=== PATIENT | female | born 1995 | race African-American/Black ===

== ENCOUNTER 2021-07-10 19:43 | Day surgery (SDC) | payer OTHER ==
[2021-07-10] MEDS ORDERED: hydrALAZINE 20 MG/ML VIAL SLOW IVP PRN (20:42)
[2021-07-10] MEDS ORDERED: Promethazine HCl 25 MG/ML VIAL IM SCH (20:45)
[2021-07-10] MEDS ORDERED: Lactated Ringer's 1,000 ML IV SCH (20:45)
[2021-07-10] MEDS ORDERED: Morphine 10 MG/ML VIAL SLOW IVP SCH (20:45)
[2021-07-10 21:08] LABS: Bilirubin Neg (Negative); Blood, Urine 250 (Negative); Clarity Slightly Cloudy (Clear); Glucose, Urine (Dipstick) Normal (Negative); Ketone, Urine 5 mg/dL (Negative); Leukocyte 25 (Negative); Nitrite Negative (Negative); Protein, Urine (Dipstick) 30 mg/dl (Neg-Trace)
[2021-07-10 21:17] LABS: Bacteria/HPF Rare-Few HPF (None Seen); Mucous/LPF 4+ LPF (<2+); RBC/HPF Greater than 50 HPF (0-3); Squamous Epithelial 0-3 HPF (0-3)
[2021-07-10 21:18] LABS: #Neutrophils 6.6 10x3/uL (1.5-8.4); %Basophils 0.3 % (0.0-2.0); %Eosinophils 0.3 % (0.0-6.0); %Lymphocytes 30.7 % (18.0-47.0); %Monocytes 9.1 % (0.0-10.0); %Neutrophils 59.2 % (40.0-75.0); Hemoglobin 11.1 g/dL (12.0-15.5); Mean Corpuscular HGB CONC 34.9 g/dL (32.0-36.0); Mean Corpuscular Hemoglobin 28.8 pg (27.0-33.0); Mean Corpuscular Volume 82.6 fl (81.6-98.3); Mean Platelet Volume 9.5 fl (7.4-10.4); Platelet Count 412 10x3/uL (150-450); RBC Distribution Width 12.8 % (11.5-14.5); Red Blood Cell (RBC) Count 3.85 10x6/uL (3.90-5.03); White Blood Cell (WBC) Count 11.1 10x3/uL (3.5-10.5)
[2021-07-10 21:25] LABS: Anion Gap 16 mmol/L (10-20); BUN (Urea Nitrogen) 7 mg/dL (7.0-18.7); Calc. Creatinine Clearance 0 mL/min (70-130); Calcium 9.4 mg/dL (7.8-10.44); Carbon Dioxide 18 mmol/L (22-29); Chloride 105 mmol/L (98-107); Glucose 88 mg/dL (70-105); Potassium 3.9 mmol/L (3.5-5.1); Sodium 135 mmol/L (136-145)
[2021-07-10 21:31] LABS: FFN Internal QC Analyzer PASS (PASS); FFN Internal QC Cassette PASS (PASS); Fetal Fibronectin Negative (Negative)
== END 2021-07-11 10:47 | disposition home or self-care (01) ==
LOC: CSHLD/OP 19:43
PROVIDERS: ATTEND Obstetrics & Gynecology
DX: O99.612 Diseases of the digestive system complicating pregnancy, second trimester (principal); K52.9 Noninfective gastroenteritis and colitis, unspecified; O26.892 Other specified pregnancy related conditions, second trimester; R10.2 Pelvic and perineal pain; Z3A.27 27 weeks gestation of pregnancy
CPT/HCPCS: 36415; 51701; 76770; 80048; 81001; 82731; 85025; 87480; 87510; 87660; 96360; 96361; 96372; 96375; 99285; J2270; J2550

== ENCOUNTER 2021-09-13 09:19 | Day surgery (SDC) | payer OTHER ==
[2021-09-13 09:24] VITALS: BMI 38.4
[2021-09-13] MEDS ORDERED: hydrALAZINE 20 MG/ML VIAL SLOW IVP PRN (09:54)
[2021-09-13] MEDS ORDERED: Ondansetron ODT 4 MG TAB SL PRN (10:04)
[2021-09-13 10:41] LABS: Bilirubin Neg (Negative); Blood, Urine 10 (Negative); Clarity Clear (Clear); Glucose, Urine (Dipstick) Normal (Negative); Ketone, Urine Negative (Negative); Leukocyte Negative (Negative); Nitrite Negative (Negative); Protein, Urine (Dipstick) Negative (Neg-Trace)
[2021-09-13 10:50] LABS: Urine Culture Reflex No No
[2021-09-13 10:56] LABS: Renal Epithelial 0-3 HPF (None Seen); Squamous Epithelial 0-3 HPF (0-3)
[2021-09-13 11:00] LABS: Transitional Epithelial 0-3 HPF (None Seen)
[2021-09-13 11:02] LABS: Bacteria/HPF 1+ HPF (None Seen)
== END 2021-09-13 11:55 | disposition home or self-care (01) ==
LOC: CSHLD/OP 09:19
PROVIDERS: ATTEND Family Medicine
DX: O26.893 Other specified pregnancy related conditions, third trimester (principal); R10.30 Lower abdominal pain, unspecified; Z3A.36 36 weeks gestation of pregnancy; Z90.49 Acquired absence of other specified parts of digestive tract
CPT/HCPCS: 51701; 81001; 87086; 87480; 87510; 87660; 99284

== ENCOUNTER 2021-09-18 20:06 | Day surgery (SDC) | payer OTHER ==
[2021-09-18 20:47] VITALS: BMI 38.4
[2021-09-18] MEDS ORDERED: hydrALAZINE 20 MG/ML VIAL SLOW IVP PRN (21:26)
== END 2021-09-18 21:27 | disposition home or self-care (01) ==
LOC: CSHLD/OP 20:06
PROVIDERS: ATTEND Family Medicine
DX: O47.1 False labor at or after 37 completed weeks of gestation (principal); O26.893 Other specified pregnancy related conditions, third trimester; R11.0 Nausea; Z3A.37 37 weeks gestation of pregnancy; Z90.49 Acquired absence of other specified parts of digestive tract

== ENCOUNTER 2021-09-20 16:36 | Inpatient (IN) | payer OTHER ==
[~2021-09-20 16:36] MED LIST: Bupivacaine/Epinephrine 0.25% 30 ML VIAL ONE
[2021-09-20] MEDS ORDERED: Diphenoxylate HCl/Atropine Tablet PO PRN (16:58)
[2021-09-20] MEDS ORDERED: Lidocaine 1% (PF) 30 ML VIAL SC PRN (16:58)
[2021-09-20] MEDS ORDERED: Methylergonovine 0.2 MG/ML VIAL IM PRN (16:58)
[2021-09-20] MEDS ORDERED: Misoprostol 200 MCG TAB PR PRN (16:58)
[2021-09-20] MEDS ORDERED: Carboprost 250 MCG/ML AMP IM PRN (16:58)
[2021-09-20] MEDS ORDERED: Butorphanol Tartrate 1 MG/ML VIAL SLOW IVP PRN (16:58)
[2021-09-20] MEDS ORDERED: hydrALAZINE 20 MG/ML VIAL SLOW IVP PRN ×2 (16:58→21:51)
[2021-09-20] MEDS ORDERED: Ondansetron PF 4 MG/2 ML Vial IVP PRN ×3 (16:58→21:51)
[2021-09-20] MEDS ORDERED: Promethazine HCl 25 MG/ML VIAL IM PRN ×3 (16:58→21:51)
[2021-09-20] MEDS ORDERED: NS w/ Oxytocin 30 units 500 ML IV SCH ×3 (17:00→21:51)
[2021-09-20] MEDS ORDERED: Lactated Ringer's 1,000 ML IV SCH (17:00)
[2021-09-20 17:30] LABS: Hemoglobin 11.4 g/dL (12.0-15.5); Mean Corpuscular HGB CONC 34.2 g/dL (32.0-36.0); Mean Corpuscular Hemoglobin 27.5 pg (27.0-33.0); Mean Corpuscular Volume 80.2 fl (81.6-98.3); Mean Platelet Volume 9.7 fl (7.4-10.4); Platelet Count 461 10x3/uL (150-450); RBC Distribution Width 12.6 % (11.5-14.5); Red Blood Cell (RBC) Count 4.15 10x6/uL (3.90-5.03)
[2021-09-20] MEDS ORDERED: Fentanyl 2 mcg/Bup 0.1% Cadd 100 ML ONE (17:33)
[2021-09-20] MEDS ORDERED: Naloxone HCl 0.4 mg/ml Vial IVP PRN ×2 (18:11)
[2021-09-20] MEDS ORDERED: Acetaminophen 325 MG TAB PO PRN (18:11)
[2021-09-20] MEDS ORDERED: diphenhydrAMINE 50 MG/ML VIAL IVP PRN (18:11)
[2021-09-20] MEDS ORDERED: Moisturizing Cream (Eucerin) 113 GM JAR TOP PRN (18:11)
[2021-09-20] MEDS ORDERED: Lactated Ringer's 500 ML IV PRN (18:11)
[2021-09-20] MEDS ORDERED: ePHEDrine Sulfate 50 MG/10 ML VIAL SLOW IVP PRN (18:11)
[2021-09-20 18:15] LABS: Hep B Surf Ag Non-Reactive S/CO (NonReactive)
[2021-09-20] MEDS ORDERED: Communication Order-Pharmacy FS SCH (18:15)
[2021-09-20] MEDS ORDERED: Fentanyl 2 mcg/Bupivacaine 0.1% Cassette 100 ML EPIDURAL SCH (18:15)
[2021-09-20 18:16] LABS: Syphilis Antibody Nonreactive (Nonreactive); Syphilis Antibody Index 0.03 S/CO (<1.00 Non-Reactive)
[2021-09-20 18:32] LABS: HBSAg Index 0.17 S/CO (0-0.99)
[2021-09-20 19:42] LABS: SARS-CoV-2 NAA Rapid Test Not Detected (NotDetected)
[2021-09-20] MEDS ORDERED: diphenhydrAMINE 25 MG CAP PO PRN (21:51)
[2021-09-20] MEDS ORDERED: Benzocaine-Menthol 82.5 ML CAN TOP PRN (21:51)
[2021-09-20] MEDS ORDERED: Bisacodyl 10 MG SUPP PR PRN (21:51)
[2021-09-20] MEDS ORDERED: Milk Of Magnesia 30 ML UDCUP PO PRN (21:51)
[2021-09-20] MEDS ORDERED: Boostrix 0.5 ML (Tdap) VIAL IM ONE (21:51)
[2021-09-20] MEDS ORDERED: Docusate 100 MG CAP PO SCH (22:00)
[2021-09-20] MEDS: Ibuprofen 800 MG TAB PO SCH (22:27)
[2021-09-21] MEDS: HYDROcodone/Acetaminophen 5/325 mg Tablet PO PRN ×5 (02:18→20:18)
[2021-09-21] MEDS: Ibuprofen 800 MG TAB PO SCH ×3 (05:33→21:19)
[2021-09-21] MEDS: Ferrous Sulfate 325 MG TAB PO SCH ×3 (07:40→15:03)
[2021-09-21] MEDS: Docusate 100 MG CAP PO SCH ×2 (07:50→20:18)
[2021-09-22] MEDS: Ibuprofen 800 MG TAB PO SCH ×2 (04:46→13:04)
[2021-09-22 08:05] VITALS: BP 124/61; TEMP 98
[2021-09-22] MEDS: Docusate 100 MG CAP PO SCH (08:42)
[2021-09-22] MEDS: HYDROcodone/Acetaminophen 5/325 mg Tablet PO PRN ×2 (08:43→13:05)
[2021-09-22] MEDS: Ferrous Sulfate 325 MG TAB PO SCH (10:07)
== END 2021-09-22 15:08 | disposition home or self-care (01) | DRG 807 ==
LOC: CSHLD/OP 16:36 → CSHLD 17:17 → CSHPP 21:42
PROVIDERS: ADMIT Family Medicine; ATTEND Family Medicine
PROC: 10E0XZZ Delivery of Products of Conception, External Approach (ICD-10-PCS; principal; 2021-09-20)
PROC: 10907ZC Drainage of Amniotic Fluid, Therapeutic from Products of Conception, Via Natural or Artificial Opening (ICD-10-PCS; 2021-09-20)
DX: O77.0 Labor and delivery complicated by meconium in amniotic fluid (principal); Z37.0 Single live birth; Z3A.37 37 weeks gestation of pregnancy; Z20.822 Contact with and (suspected) exposure to COVID-19; Z79.899 Other long term (current) drug therapy; Z90.49 Acquired absence of other specified parts of digestive tract; O69.81X0 Labor and delivery complicated by cord around neck, without compression, not applicable or unspecified
CPT/HCPCS: 85027; 86780; 86850; 86900; 86901; 87340; 99285; J2405; J7120; U0002